=== PATIENT | male | born 1945 | race Caucasian/White ===

== ENCOUNTER 2016-12-29 10:28 | Inpatient (IN) | payer MEDICARE, OTHER ==
[~2016-12-29] VITALS: Ht 172.7 cm; Wt 78.5 kg
[~2016-12-29 10:28] MED LIST: ASPIRIN 81M81 MG/TA2 PO; AVODART 0.5MG0.5 MG PO; CARDURA4 MG PO; FLAGYL 250250 MG/TAB PO; HCTZ 25MG TAB25 MG PO; NORCO 325 MG-51 TAB PO; REVLIMID10 MG PO; [UNRECOGNIZED DRUG - REMARK]
[2016-12-29 11:24] LABS: HEMATOCRIT 37.8 % (42.0-52.0); HEMOGLOBIN 13.8 g/dl (13.5-18.0); MEAN CELL VOLUME 94 fl (80.0-100.0); MEAN CORPUSCULAR HEMOGLOBIN 34 pg (27.0-31.0); MEAN CORPUSCULAR HGB CONC 37 g/dl (33.0-37.0); MEAN PLATELET VOLUME 9.1 fl (7.4-10.4); PLATELET COUNT 79 K/mm3 (130-400); RED BLOOD COUNT 4.04 M/mm3 (4.20-5.60); REDCELL DISTRIBUTION WIDTH-CV 12.2 % (11.5-14.5)
[2016-12-29 11:26] LABS: WHITE BLOOD COUNT 1.1 K/mm3 (4.8-10.8)
[2016-12-29 11:29] LABS: ADJUSTED CALCIUM 8.8 mg/dL (8.4-10.2); ALBUMIN 3.9 gm/dL (3.5-5.0); BILIRUBIN,TOTAL 0.7 mg/dL (0.0-1.0); CALCIUM 8.7 mg/dL (8.4-10.2); CREATININE, serum 1.37 mg/dL (0.66-1.25); TOTAL PROTEIN 6.6 gm/dL (6.4-8.2)
[2016-12-29 11:31] LABS: POTASSIUM 2.9 mmol/L (3.4-5.0)
[2016-12-29 11:47] LABS: PH 5 (5-8); SQUAMOUS EPITHELIAL None Seen /hpf; URINE APPEARANCE Clear; URINE BACTERIA None Seen /hpf; URINE BILIRUBIN Negative (NEGATIVE); URINE BLOOD 1+ (NEGATIVE); URINE COLOR Straw; URINE GLUCOSE Negative (NEGATIVE); URINE KETONE Trace (NEGATIVE); URINE RBC None Seen /hpf; URINE UROBILINOGEN Negative (NEGATIVE); URINE WBC 0-2 /hpf
[2016-12-29 11:49] LABS: ADD PATHOLOGY DIFF REVIEW NO
[2016-12-29 12:07] LABS: BAND 20 % (0-10); BASOPHIL 1 % (0-2); NEUTROPHILS 33 % (42.0-75.2); TOTAL CELLS COUNTED 100
[2016-12-29 12:08] LABS: PLATELET ESTIMATE DECREASED (NORMAL)
[2016-12-29] MEDS ORDERED: PERIDEX (CHLOR480 ML MM (12:39)
[2016-12-29] MEDS ORDERED: HCTZ12.5TAB PO (12:40)
[2016-12-29] MEDS ORDERED: DOXYCYCLINE 10100 MG PO (12:41)
[2016-12-29] MEDS ORDERED: TYLENOL PM EXTR1 TA1 PO (14:50)
[2016-12-29 16:04] VITALS: BP 132/81; PULSE 74; TEMP 99.9
[2016-12-29 16:05] LABS: INFLUENZA B NEGATIVE
[2016-12-29 20:35] VITALS: BP 134/80; PULSE 78; TEMP 98.2
[2016-12-29 23:12] VITALS: BP 120/68; PULSE 57; TEMP 98.1
[2016-12-30 04:50] VITALS: BP 135/77; PULSE 62; TEMP 98.8
[2016-12-30 08:03] VITALS: BP 128/75; PULSE 76; TEMP 99.2
[2016-12-30 08:07] LABS: CREATININE, serum 1.22 mg/dL (0.66-1.25); POTASSIUM 3.4 mmol/L (3.4-5.0)
[2016-12-30 08:21] LABS: HEMOGLOBIN 12.7 g/dl (13.5-18.0); MEAN CELL VOLUME 98 fl (80.0-100.0); MEAN CORPUSCULAR HEMOGLOBIN 35 pg (27.0-31.0); MEAN CORPUSCULAR HGB CONC 36 g/dl (33.0-37.0); MEAN PLATELET VOLUME 9.4 fl (7.4-10.4); PLATELET COUNT 76 K/mm3 (130-400); RED BLOOD COUNT 3.67 M/mm3 (4.20-5.60); REDCELL DISTRIBUTION WIDTH-CV 12.6 % (11.5-14.5)
[2016-12-30 08:43] LABS: HEMATOCRIT 35.8 % (42.0-52.0); WHITE BLOOD COUNT 1.4 K/mm3 (4.8-10.8)
[2016-12-30 08:44] LABS: ADD PATHOLOGY DIFF REVIEW NO
[2016-12-30 10:58] VITALS: BP 124/44; PULSE 81; TEMP 99.6
[2016-12-30 15:17] VITALS: BP 116/69; PULSE 77; TEMP 99.3
[2016-12-30 16:10] LABS: BAND 18 % (0-10); NEUTROPHILS 24 % (42.0-75.2); PLATELET ESTIMATE DECREASED (NORMAL); TOTAL CELLS COUNTED 100
[2016-12-30 20:08] VITALS: BP 124/71; PULSE 78; TEMP 99.2
[2016-12-30 23:49] VITALS: BP 118/77; PULSE 65; TEMP 98.3
[2016-12-31 03:37] VITALS: BP 117/81; PULSE 68; TEMP 97.8
[2016-12-31 08:36] VITALS: BP 130/81; PULSE 75; TEMP 98.4
[2016-12-31 09:59] LABS: HEMOGLOBIN 12.3 g/dl (13.5-18.0); MEAN CELL VOLUME 96 fl (80.0-100.0); MEAN CORPUSCULAR HEMOGLOBIN 34 pg (27.0-31.0); MEAN CORPUSCULAR HGB CONC 35 g/dl (33.0-37.0); MEAN PLATELET VOLUME 9.9 fl (7.4-10.4); RED BLOOD COUNT 3.64 M/mm3 (4.20-5.60); REDCELL DISTRIBUTION WIDTH-CV 12.8 % (11.5-14.5); WHITE BLOOD COUNT 4.3 K/mm3 (4.8-10.8)
[2016-12-31 10:40] LABS: HEMATOCRIT 35.1 % (42.0-52.0); PLATELET COUNT 58 K/mm3 (130-400)
[2016-12-31 10:41] LABS: ADD PATHOLOGY DIFF REVIEW NO
[2016-12-31 12:19] VITALS: BP 127/81; PULSE 78; TEMP 98.4
[2016-12-31 12:48] LABS: BAND 33 % (0-10); METAMYELOCYTE 1 % (0-0); NEUTROPHILS 49 % (42.0-75.2); PLATELET ESTIMATE DECREASED (NORMAL); TOTAL CELLS COUNTED 100
[2016-12-31 16:02] VITALS: BP 127/70; PULSE 85; TEMP 97.8
[2016-12-31 21:24] VITALS: BP 139/84; PULSE 77; TEMP 98.9
[2017-01-01 00:22] VITALS: BP 135/87; PULSE 61; TEMP 97.8
[2017-01-01 03:24] VITALS: BP 138/89; PULSE 65; TEMP 97.8
[2017-01-01 08:37] VITALS: BP 145/88; PULSE 73; TEMP 97.1
[2017-01-01 09:38] LABS: HEMOGLOBIN 12.3 g/dl (13.5-18.0); MEAN CELL VOLUME 98 fl (80.0-100.0); MEAN CORPUSCULAR HEMOGLOBIN 34 pg (27.0-31.0); MEAN CORPUSCULAR HGB CONC 35 g/dl (33.0-37.0); MEAN PLATELET VOLUME 9.5 fl (7.4-10.4); RED BLOOD COUNT 3.66 M/mm3 (4.20-5.60); REDCELL DISTRIBUTION WIDTH-CV 12.9 % (11.5-14.5); WHITE BLOOD COUNT 3.6 K/mm3 (4.8-10.8)
[2017-01-01 09:39] LABS: HEMATOCRIT 35.7 % (42.0-52.0); PLATELET COUNT 54 K/mm3 (130-400)
[2017-01-01 09:40] LABS: ADD PATHOLOGY DIFF REVIEW NO
[2017-01-01 10:49] LABS: BAND 20 % (0-10); NEUTROPHILS 56 % (42.0-75.2); TOTAL CELLS COUNTED 100
[2017-01-01] MEDS ORDERED: LEVAQUIN 750MG750 M1 PO (11:53)
[2017-01-01 11:55] VITALS: BP 120/78; PULSE 70; TEMP 97.6
[2017-01-01] MEDS ORDERED: TUSS PO (11:55)
== END 2017-01-01 12:40 | disposition home or self-care (01) | DRG 809 ==
LOC: COL.ER 10:28 → MEDICAL 13:32
PROVIDERS: Emergency Medicine; Internal Medicine
DX: D70.9 Neutropenia, unspecified (principal); C90.00 Multiple myeloma not having achieved remission; N17.9 Acute kidney failure, unspecified; R50.81 Fever presenting with conditions classified elsewhere; D69.6 Thrombocytopenia, unspecified; I10 Essential (primary) hypertension; N40.0 Benign prostatic hyperplasia without lower urinary tract symptoms; K52.9 Noninfective gastroenteritis and colitis, unspecified
CPT/HCPCS: 99222-AI; 99232-AI; 99239; J0692; J0696; J1447; J7030

== ENCOUNTER → 2017-04-06 | Outpatient (CLI) | payer MEDICARE, OTHER ==
[~2017-04-06] MED LIST changes: +DOXYCYCLINE 10100 MG PO; +HCTZ12.5TAB PO; +LEVAQUIN 750MG750 M1 PO; +PERIDEX (CHLOR480 ML MM; +TUSS PO; +TYLENOL PM EXTR1 TA1 PO
== END ==
LOC: COL.RAD 10:21
DX: M48.06 Spinal stenosis, lumbar region (principal); M25.78 Osteophyte, vertebrae

== ENCOUNTER 2018-08-08 21:25 | Inpatient (IN) | payer MEDICARE, OTHER ==
[~2018-08-08] VITALS: Ht 170.2 cm; Wt 80.0 kg
[~2018-08-08 21:25] MED LIST changes: -MELATONIN5 M1 PO; -NEURONTIN300 MG/CAP PO; -PRILOSEC 20MG20 MG PO; -REVLIMID5 MG PO
[2018-08-08] MEDS ORDERED: REVLIMID5 MG PO (21:52)
[2018-08-08] MEDS ORDERED: MELATONIN5 M1 PO (21:54)
[2018-08-08] MEDS ORDERED: PRILOSEC 20MG20 MG PO (21:54)
[2018-08-08] MEDS ORDERED: NEURONTIN300 MG/CAP PO (21:54)
[2018-08-08 21:57] LABS: BASO % 0.6 % (0.0-2.0); EOS # 0.1 (0.0-0.7); EOS % 0.9 % (0-4.0); GRAN # 3.3 (1.4-6.5); GRAN % 62.7 % (42.2-75.2); HEMOGLOBIN 14.3 g/dl (13.5-18.0); LYMPH # 0.9 (1.2-3.4); LYMPH % 16.7 % (20.0-51.0); MEAN CELL VOLUME 95 fl (80.0-100.0); MEAN CORPUSCULAR HEMOGLOBIN 35 pg (27.0-31.0); MEAN CORPUSCULAR HGB CONC 37 g/dl (33.0-37.0); MEAN PLATELET VOLUME 9.1 fl (7.4-10.4); MONO % 18.2 % (1.7-9.3); PLATELET COUNT 108 K/mm3 (130-400); RED BLOOD COUNT 4.09 M/mm3 (4.20-5.60); REDCELL DISTRIBUTION WIDTH-CV 13.2 % (11.5-14.5)
[2018-08-08 22:09] LABS: ALBUMIN 3.8 gm/dL (3.5-5.0); BILIRUBIN,TOTAL 2.5 mg/dL (0.0-1.0); C-REACTIVE PROTEIN 6.2 mg/dL (0.0-0.9); CALCIUM 8.6 mg/dL (8.4-10.2); CREATININE, serum 1.13 mg/dL (0.66-1.25); TOTAL PROTEIN 6.7 gm/dL (6.4-8.2)
[2018-08-08 22:11] LABS: POTASSIUM 2.6 mmol/L (3.4-5.0)
[2018-08-08 22:59] LABS: COLLECTION METHOD CLEAN CATCH
[2018-08-08 23:05] LABS: PH 6 (5-8); SQUAMOUS EPITHELIAL None Seen /hpf; URINE APPEARANCE Clear; URINE BACTERIA None Seen /hpf; URINE BILIRUBIN Negative (NEGATIVE); URINE BLOOD 1+ (NEGATIVE); URINE COLOR Yellow; URINE GLUCOSE Negative (NEGATIVE); URINE KETONE Negative (NEGATIVE); URINE LEUKOCYTE ESTERASE Negative (NEGATIVE); URINE NITRATE Negative (NEGATIVE); URINE PROTEIN(semi-quant) Negative (NEGATIVE); URINE RBC None Seen /hpf; URINE UROBILINOGEN Negative (NEGATIVE)
[2018-08-09] MEDS ORDERED: ASPIRIN 81M81 MG/TA2 PO (00:41)
[2018-08-09 02:00] VITALS: BP 145/72; PULSE 90; TEMP 98.8
[2018-08-09 03:58] VITALS: BP 129/960; PULSE 86; TEMP 101.6
[2018-08-09 05:56] LABS: ALBUMIN 3.3 gm/dL (3.5-5.0); BILIRUBIN,TOTAL 3.2 mg/dL (0.0-1.0); CALCIUM 8.1 mg/dL (8.4-10.2); CREATININE, serum 1.16 mg/dL (0.66-1.25); POTASSIUM 3.1 mmol/L (3.4-5.0); TOTAL PROTEIN 5.9 gm/dL (6.4-8.2)
[2018-08-09 06:00] LABS: BASO % 0.2 % (0.0-2.0); EOS % 0.4 % (0-4.0); GRAN # 3.2 (1.4-6.5); GRAN % 67.1 % (42.2-75.2); HEMOGLOBIN 13.4 g/dl (13.5-18.0); LYMPH # 0.7 (1.2-3.4); LYMPH % 13.8 % (20.0-51.0); MEAN CELL VOLUME 99 fl (80.0-100.0); MEAN CORPUSCULAR HEMOGLOBIN 35 pg (27.0-31.0); MEAN CORPUSCULAR HGB CONC 35 g/dl (33.0-37.0); MEAN PLATELET VOLUME 10.3 fl (7.4-10.4); MONO # 0.8 (0.1-0.6); MONO % 17.5 % (1.7-9.3); PLATELET COUNT 110 K/mm3 (130-400); RED BLOOD COUNT 3.83 M/mm3 (4.20-5.60); REDCELL DISTRIBUTION WIDTH-CV 13.4 % (11.5-14.5)
[2018-08-09 07:59] VITALS: BP 105/56; PULSE 64; TEMP 97.7
[2018-08-09 12:11] VITALS: BP 116/72; PULSE 74; TEMP 97.4
[2018-08-09 16:26] VITALS: BP 124/68; PULSE 79; TEMP 99.4
[2018-08-09 20:35] VITALS: BP 116/66; PULSE 66; TEMP 97.6
[2018-08-10] VITALS (10 sets, daily range): BP systolic 102–122; BP diastolic 59–86; PULSE 57–73; TEMP 97.5–98
[2018-08-10 06:12] LABS: HEMATOCRIT 39.7 % (42.0-52.0); HEMOGLOBIN 13.6 g/dl (13.5-18.0); MEAN CELL VOLUME 102 fl (80.0-100.0); MEAN CORPUSCULAR HEMOGLOBIN 35 pg (27.0-31.0); MEAN CORPUSCULAR HGB CONC 34 g/dl (33.0-37.0); MEAN PLATELET VOLUME 9.7 fl (7.4-10.4); PLATELET COUNT 121 K/mm3 (130-400); RED BLOOD COUNT 3.91 M/mm3 (4.20-5.60); REDCELL DISTRIBUTION WIDTH-CV 13.5 % (11.5-14.5)
[2018-08-10 06:18] LABS: ALBUMIN 3.4 gm/dL (3.5-5.0); BILIRUBIN,TOTAL 1.9 mg/dL (0.0-1.0); CALCIUM 8.1 mg/dL (8.4-10.2); CREATININE, serum 1.08 mg/dL (0.66-1.25); POTASSIUM 3.4 mmol/L (3.4-5.0); TOTAL PROTEIN 6.3 gm/dL (6.4-8.2)
== END 2018-08-10 15:05 | disposition home or self-care (01) | DRG 418 ==
LOC: COL.ER 21:25 → SURG 22:27
PROVIDERS: Emergency Medicine; Surgery
PROC: BF121ZZ Fluoroscopy of Gallbladder using Low Osmolar Contrast (ICD-10-PCS; 2018-08-10)
PROC: 0FT44ZZ Resection of Gallbladder, Percutaneous Endoscopic Approach (ICD-10-PCS; principal; 2018-08-10 08:00)
DX: K81.2 Acute cholecystitis with chronic cholecystitis (principal); C90.01 Multiple myeloma in remission; I10 Essential (primary) hypertension; K21.9 Gastro-esophageal reflux disease without esophagitis
CPT/HCPCS: J0696; J1885; J2250; J2405; J2543; J2704; J3010; J3480; J7030; J7120; Q9967

== ENCOUNTER → 2018-08-08 | Outpatient (CLI) | payer MEDICARE, OTHER ==
[~2018-08-08] MED LIST changes: +CARDURA 2MG2 MG PO; -CARDURA4 MG PO; -HCTZ12.5TAB PO; +MELATONIN5 M1 PO; +NEURONTIN300 MG/CAP PO; +PRILOSEC 20MG20 MG PO; +REVLIMID5 MG PO
== END ==
LOC: COL.RAD 08:30
DX: K57.90 Diverticulosis of intestine, part unspecified, without perforation or abscess without bleeding (principal); Z85.79 Personal history of other malignant neoplasms of lymphoid, hematopoietic and related tissues
CPT/HCPCS: Q9967

== ENCOUNTER 2018-09-02 18:00 | Emergency (ER) | payer MEDICARE, OTHER ==
[~2018-09-02] VITALS: Ht 170.2 cm; Wt 79.1 kg
[~2018-09-02 18:00] MED LIST changes: +MELATONIN5 M1 PO; +NEURONTIN300 MG/CAP PO; +PRILOSEC 20MG20 MG PO; +REVLIMID5 MG PO
[2018-09-02 18:05] VITALS: TEMP 100
[2018-09-02 18:48] LABS: EOS # 0.1 (0.0-0.7); EOS % 4.1 % (0-4.0); GRAN # 1.8 (1.4-6.5); GRAN % 73.7 % (42.2-75.2); HEMATOCRIT 40.3 % (42.0-52.0); HEMOGLOBIN 14.1 g/dl (13.5-18.0); LYMPH # 0.4 (1.2-3.4); LYMPH % 14.8 % (20.0-51.0); MEAN CELL VOLUME 98 fl (80.0-100.0); MEAN CORPUSCULAR HEMOGLOBIN 34 pg (27.0-31.0); MEAN CORPUSCULAR HGB CONC 35 g/dl (33.0-37.0); MEAN PLATELET VOLUME 9.1 fl (7.4-10.4); MONO # 0.2 (0.1-0.6); MONO % 6.6 % (1.7-9.3); PLATELET COUNT 84 K/mm3 (130-400); RED BLOOD COUNT 4.12 M/mm3 (4.20-5.60); REDCELL DISTRIBUTION WIDTH-CV 13.5 % (11.5-14.5)
[2018-09-02 18:55] LABS: ALBUMIN 3.7 gm/dL (3.5-5.0); BILIRUBIN,TOTAL 1.4 mg/dL (0.0-1.0); C-REACTIVE PROTEIN 0.8 mg/dL (0.0-0.9); CALCIUM 8.3 mg/dL (8.4-10.2); CREATININE, serum 1.18 mg/dL (0.66-1.25); POTASSIUM 3.2 mmol/L (3.4-5.0); TOTAL PROTEIN 6.4 gm/dL (6.4-8.2)
[2018-09-02] MEDS ORDERED: MULTIPLE VITAMI1 CAP PO (19:05)
[2018-09-02] MEDS ORDERED: MAGNESIUM200 MG PO (19:05)
[2018-09-02] MEDS ORDERED: CALCIUM CARBON650 M2 PO (19:06)
[2018-09-02 19:23] VITALS: BP 106/61; PULSE 89
== END 2018-09-02 19:30 | disposition home or self-care (01) ==
LOC: COL.ER 18:00
PROVIDERS: Emergency Medicine
DX: T88.1XXA Other complications following immunization, not elsewhere classified, initial encounter (principal); T50.B95A Adverse effect of other viral vaccines, initial encounter; R11.2 Nausea with vomiting, unspecified; I10 Essential (primary) hypertension; Y84.8 Other medical procedures as the cause of abnormal reaction of the patient, or of later complication, without mention of misadventure at the time of the procedure; Z90.49 Acquired absence of other specified parts of digestive tract; Z87.891 Personal history of nicotine dependence; Z98.890 Other specified postprocedural states; Z79.82 Long term (current) use of aspirin
CPT/HCPCS: J2405; J7030

== ENCOUNTER 2020-01-12 20:45 | Emergency (ER) | payer MEDICARE, OTHER ==
[~2020-01-12] VITALS: Ht 170.2 cm; Wt 80.5 kg
[~2020-01-12 20:45] MED LIST changes: +CALCIUM CARBON650 M2 PO; +MAGNESIUM200 MG PO; +MULTIPLE VITAMI1 CAP PO
[2020-01-12] MEDS ORDERED: AVODART 0.5MG0.5 MG PO (21:01)
[2020-01-12] MEDS ORDERED: FOSAMAX 70MG TA70 MG PO (21:04)
[2020-01-12 21:29] LABS: BASO % 0.5 % (0.0-2.0); EOS # 0.1 (0.0-0.7); EOS % 1.1 % (0-4.0); GRAN # 3.4 (1.4-6.5); HEMATOCRIT 45.3 % (42.0-52.0); LYMPH # 0.2 (1.2-3.4); LYMPH % 5.2 % (20.0-51.0); MEAN CELL VOLUME 96 fl (80.0-100.0); MEAN CORPUSCULAR HEMOGLOBIN 34 pg (27.0-31.0); MEAN CORPUSCULAR HGB CONC 35 g/dl (33.0-37.0); MEAN PLATELET VOLUME 10.2 fl (7.4-10.4); MONO # 0.7 (0.1-0.6); PLATELET COUNT 101 K/mm3 (130-400); REDCELL DISTRIBUTION WIDTH-CV 13.3 % (11.5-14.5)
[2020-01-12 21:41] LABS: ALBUMIN 4.1 gm/dL (3.5-5.0); BILIRUBIN,TOTAL 1.3 mg/dL (0.0-1.0); CREATININE, serum 1.09 (0.66-1.25); POTASSIUM 3.2 mmol/L (3.4-5.0); TOTAL PROTEIN 6.6 gm/dL (6.4-8.2)
[2020-01-12] MEDS ORDERED: PHENERGAN 25 TA25 MG PO (22:50)
[2020-01-12 23:07] VITALS: BP 146/86; PULSE 86; TEMP 98.6
== END 2020-01-12 23:20 | disposition home or self-care (01) ==
LOC: COL.ER 20:45
PROVIDERS: Emergency Medicine
DX: R55 Syncope and collapse (principal); I10 Essential (primary) hypertension; Z79.82 Long term (current) use of aspirin; Z85.79 Personal history of other malignant neoplasms of lymphoid, hematopoietic and related tissues
CPT/HCPCS: J2405; J7030

== ENCOUNTER → 2020-04-10 | Outpatient (CLI) | payer MEDICARE, OTHER ==
[~2020-04-10] MED LIST changes: +FOSAMAX 70MG TA70 MG PO; +PHENERGAN 25 TA25 MG PO; +QUESTRAN4 GM/9 GM PO
== END ==
LOC: COL.RAD 11:05
DX: C90.01 Multiple myeloma in remission (principal); Z94.81 Bone marrow transplant status

== ENCOUNTER 2020-04-14 06:56 | Outpatient (CLI) | payer MEDICARE, OTHER ==
[~2020-04-14] VITALS: Ht 170.3 cm; Wt 81.7 kg
[~2020-04-14 06:56] MED LIST changes: -QUESTRAN4 GM/9 GM PO
[2020-04-14] MEDS ORDERED: NEURONTIN300 MG/CAP PO (07:51)
[2020-04-14 07:54] VITALS: BP 141/90; PULSE 69; TEMP 96.9
[2020-04-14] MEDS ORDERED: QUESTRAN4 GM/9 GM PO (08:48)
[2020-04-14] MEDS ORDERED: REVLIMID5 MG PO (08:48)
--- NOTE | 2020-04-14 09:40 | NUR ---
Report received from Alessandra,PACU.Will await further orders.
[2020-04-14 09:45] VITALS: BP 142/89; PULSE 62
--- NOTE | 2020-04-14 09:45 | NUR ---
Pt returned from procedure,observed alert and orientated x 3,respirations even and unlabored.report from Anat Aparicio.
[2020-04-14 09:50] VITALS: BP 139/92; PULSE 64
[2020-04-14 10:05] VITALS: BP 142/92; PULSE 66
[2020-04-14 10:20] VITALS: BP 145/97; PULSE 67
[2020-04-14 10:25] VITALS: BP 117/74; PULSE 65
[2020-04-14 10:38] LABS: BASO # 0.1 (0.0-0.2); BASO % 1.5 % (0.0-2.0); EOS # 0.2 (0.0-0.7); EOS % 7.2 % (0-4.0); GRAN # 1.3 (1.4-6.5); GRAN % 39.2 % (42.2-75.2); HEMATOCRIT 45.2 % (42.0-52.0); HEMOGLOBIN 15.8 g/dl (13.5-18.0); LYMPH # 1.1 (1.2-3.4); LYMPH % 32.9 % (20.0-51.0); MEAN CELL VOLUME 98 fl (80.0-100.0); MEAN CORPUSCULAR HEMOGLOBIN 34 pg (27.0-31.0); MEAN CORPUSCULAR HGB CONC 35 g/dl (33.0-37.0); MEAN PLATELET VOLUME 10.1 fl (7.4-10.4); MONO # 0.6 (0.1-0.6); MONO % 18.9 % (1.7-9.3); PLATELET COUNT 115 K/mm3 (130-400); RED BLOOD COUNT 4.63 M/mm3 (4.20-5.60); REDCELL DISTRIBUTION WIDTH-CV 13.2 % (11.5-14.5)
--- NOTE | 2020-04-14 10:55 | NUR ---
dISCHARGE INSTRUCTIONS GIVEN TO PT.PT VERBALIZES UNDERSTANDING.int REMOVED,CATHETER TIP INTACT.pT ESCORTED OUT VIA WHEELCHAIR BY THIS NURSE.
== END 2020-04-14 11:13 | disposition home or self-care (01) ==
LOC: EUO 06:56
PROVIDERS: Pathology Anatomic Pathology & Clinical Pathology
DX: C90.00 Multiple myeloma not having achieved remission (principal)
CPT/HCPCS: J2704; J7120

== ENCOUNTER → 2021-04-15 | Outpatient (CLI) | payer MEDICARE, OTHER ==
[~2021-04-15] MED LIST changes: +QUESTRAN4 GM/9 GM PO
== END ==
LOC: COL.RAD 10:43
DX: C90.01 Multiple myeloma in remission (principal); Z87.81 Personal history of (healed) traumatic fracture

== ENCOUNTER 2022-01-15 18:11 | Inpatient (IN) | payer MEDICARE, OTHER ==
[~2022-01-15] VITALS: Ht 170.2 cm; Wt 76.5 kg
[2022-01-15 18:49] LABS: BASO % 0.4 % (0.0-2.0); EOS % 1.3 % (0.0-4.0); GRAN # 1.6 K/mm3 (1.4-6.5); GRAN % 67.9 % (42.2-75.2); HEMATOCRIT 40.6 % (42.0-52.0); HEMOGLOBIN 14.8 g/dl (13.5-18.0); LYMPH # 0.3 K/mm3 (1.2-3.4); LYMPH % 13.8 % (20.0-51.0); MEAN CELL VOLUME 90 fl (80.0-100.0); MEAN CORPUSCULAR HEMOGLOBIN 33 pg (27-31); MEAN CORPUSCULAR HGB CONC 37 g/dl (33.0-37.0); MEAN PLATELET VOLUME 9.7 fl (7.4-10.4); MONO # 0.4 K/mm3 (0.1-0.6); MONO % 15.8 % (1.7-9.3); PLATELET COUNT 76 K/mm3 (130-400); RED BLOOD COUNT 4.51 M/mm3 (4.20-5.60); REDCELL DISTRIBUTION WIDTH-CV 12.9 % (11.5-14.5)
[2022-01-15 19:04] LABS: ALBUMIN 3.5 gm/dL (3.4-4.8); BILIRUBIN,TOTAL 1.4 mg/dL (0.2-1.2); C-REACTIVE PROTEIN 14.45 mg/dL (0.00-0.50); CALCIUM 8.4 mg/dL (8.4-10.2); CREATININE, serum 1.4 mg/dL (0.72-1.25); POTASSIUM 2.6 mmol/L (3.5-4.5); TOTAL PROTEIN 6.4 gm/dL (6.2-8.1)
[2022-01-15 19:09] LABS: TROPONIN-I 0.023 ng/mL (0.00-0.033)
[2022-01-15 21:01] LABS: MAGNESIUM 1.2 mg/dL (1.6-2.6)
[2022-01-15] MEDS ORDERED: TESSALON P100 MG/CAP PO (21:18)
[2022-01-15] MEDS ORDERED: CALCIUM 600 MG1 EAC2 PO (21:22)
[2022-01-15 22:07] LABS: INR 1.2 (0.8-3.0); PROTHROMBIN TIME 13.5 SECONDS (9.7-12.8)
[2022-01-15 22:15] LABS: COLLECTION METHOD CLEAN CATCH
[2022-01-15 22:34] LABS: MUCOUS Present (NOT PRESENT); PH 5 (5-8); SQUAMOUS EPITHELIAL 0-2 /hpf (0-10); URINE APPEARANCE Hazy (CLEAR/HAZY); URINE BACTERIA None Seen /hpf (NONE SEEN); URINE BILIRUBIN Negative (NEGATIVE); URINE BLOOD 2+ (NEGATIVE); URINE COLOR Yellow (YELLOW); URINE GLUCOSE Negative (NEGATIVE); URINE KETONE 1+ (NEGATIVE); URINE LEUKOCYTE ESTERASE Negative (NEGATIVE); URINE NITRATE Negative (NEGATIVE); URINE PROTEIN(semi-quant) 1+ (NEGATIVE); URINE RBC 0-2 /hpf (0-2); URINE UROBILINOGEN Negative (NEGATIVE)
[2022-01-15 23:31] VITALS: BP 159/77; PULSE 96; TEMP 101.1
[2022-01-16 04:28] VITALS: BP 152/73; PULSE 74; TEMP 97.9
--- NOTE | 2022-01-16 04:54 | NUR ---
76 yo male with a past medical history significant for multiple myeloma with a history of bone marrow transplant and receiving Revlimid with chronic leukopenia and thrombocytopenia is now admitted for further care and managment of sepsis likely secondary to multilobar pneumonia. ht 67 inches wt 80.6 kg SCr 1.4 with estimated CrCl ~40 ml/min half life 21.1 hours Plan: Will give an initial loading dose of vancomycin 1500 mg x1 (18.6 mg/kg); followed by a maintenance regimen of vancomycin 1250 mg q24h to target a goal trough of 15-20 mcg/ml. Will follow patient's renal function, micro data, and vancomycin levels as indicated to assess for any necessary changes to regimen. Thank you for this dosing consult.
[2022-01-16 05:06] LABS: CLOSTRIDIUM DIFF A/B NEG; CLOSTRIDIUM DIFF A/B INTERP NonToxigenic C.diff
[2022-01-16 07:22] VITALS: BP 145/86; PULSE 73; TEMP 97.7
[2022-01-16 07:31] LABS: MAGNESIUM 1.8 mg/dL (1.6-2.6); PHOSPHOROUS 2.1 mg/dL (2.3-4.7)
--- NOTE | 2022-01-16 07:36 | NUR ---
PT admitted to room 357 from ED, alert and oriented ambulating to restroom ad selam. oriented to room, plan of care and medical floor. saline lock in left forearm started in ED, 2nd site placed in RFA per this RN d/t numerous IVF orders, 1st bag of potassium given in ED, confirmed with GIACOMO Villa to give 8 bags total, additional 6 bags given since admission, 1 remaining. IVF NS infusing @100 cc/hr. updates given this am to pt and , per phone. pt placed in contact and droplet precautions per lab results.
[2022-01-16 08:11] LABS: HEMATOCRIT 41.5 % (42.0-52.0); HEMOGLOBIN 14.4 g/dl (13.5-18.0); MEAN CELL VOLUME 94 fl (80.0-100.0); MEAN CORPUSCULAR HEMOGLOBIN 33 pg (27-31); MEAN CORPUSCULAR HGB CONC 35 g/dl (33.0-37.0); MEAN PLATELET VOLUME 10.5 fl (7.4-10.4); PLATELET COUNT 77 K/mm3 (130-400); RED BLOOD COUNT 4.41 M/mm3 (4.20-5.60); REDCELL DISTRIBUTION WIDTH-CV 13.2 % (11.5-14.5)
[2022-01-16 08:21] LABS: CALCIUM 7.8 mg/dL (8.4-10.2); CREATININE, serum 1.28 mg/dL (0.72-1.25); POTASSIUM 3.1 mmol/L (3.5-4.5)
--- NOTE | 2022-01-16 09:20 | NUR ---
Shift assessment complete. Pt resting in bed, at bedside. A&Ox4. Heart RRR. Lungs CTA. Denies pain, N/V, dizziness, SOA or any other concerns. IV fluids running. Pt denies further needs at this time.
[2022-01-16 09:53] LABS: LYMPHOCYTE 14 % (20.0-51.0); NEUTROPHILS 84 % (42.0-75.2)
[2022-01-16 09:54] LABS: PLATELET ESTIMATE DECREASED (NORMAL)
[2022-01-16] MEDS ORDERED: MELATONIN5 M1 SL (10:23)
[2022-01-16] MEDS ORDERED: QUERCETIN PO (10:24)
[2022-01-16 11:39] VITALS: BP 152/84; PULSE 86; TEMP 97.6
--- NOTE | 2022-01-16 13:39 | NUR ---
SW met with pt to complete intake. Pt reports he lives at home with his , gerard [phone] and is independent on all ADLS and DME. The pt reports still driving. The pt report PCP Dr. Kincaid [facility] No other needs at this time. DC: Home with .
[2022-01-16 16:09] VITALS: BP 147/87; PULSE 90; TEMP 98
[2022-01-16 20:34] VITALS: BP 155/85; PULSE 96; TEMP 98.1
[2022-01-16 23:36] VITALS: BP 144/86; PULSE 89; TEMP 98.4
--- NOTE | 2022-01-17 01:41 | NUR ---
PATIENT DOING WELL TONIGHT. ALERT AND ORIENTED. PRN TYLENOL GIVEN FOR HEADACHE ALONG WITH SCHEDULED MEDS. TELE REPORTING SR. IV R AND L FA PATENT AND FLUSH EASILY. NO TEMPERATURE TONIGHT. DENIES NAUSEA.
[2022-01-17 03:31] VITALS: BP 157/99; PULSE 73; TEMP 98
[2022-01-17 06:53] LABS: BASO % 0.3 % (0.0-2.0); GRAN # 2.6 K/mm3 (1.4-6.5); GRAN % 75.3 % (42.2-75.2); HEMATOCRIT 37.1 % (42.0-52.0); HEMOGLOBIN 13.3 g/dl (13.5-18.0); LYMPH # 0.4 K/mm3 (1.2-3.4); LYMPH % 10.6 % (20.0-51.0); MEAN CELL VOLUME 92 fl (80.0-100.0); MEAN CORPUSCULAR HEMOGLOBIN 33 pg (27-31); MEAN CORPUSCULAR HGB CONC 36 g/dl (33.0-37.0); MEAN PLATELET VOLUME 10.1 fl (7.4-10.4); MONO # 0.5 K/mm3 (0.1-0.6); MONO % 13.2 % (1.7-9.3); PLATELET COUNT 92 K/mm3 (130-400); RED BLOOD COUNT 4.03 M/mm3 (4.20-5.60); REDCELL DISTRIBUTION WIDTH-CV 13.2 % (11.5-14.5)
[2022-01-17 06:57] LABS: CALCIUM 7.4 mg/dL (8.4-10.2); CREATININE, serum 1.14 mg/dL (0.72-1.25); MAGNESIUM 1.6 mg/dL (1.6-2.6); POTASSIUM 3.3 mmol/L (3.5-4.5)
[2022-01-17 08:34] VITALS: BP 173/82; PULSE 92; TEMP 97.6
--- NOTE | 2022-01-17 10:52 | NUR ---
PT RESTING IN BED. MORNING MEDICATIONS GIVEN. SHIFT ASSESSMENT COMPLETED. DENIES ANY PAIN OR NEEDS AT THIS TIME. REPORTS FREQUENT, WATERY, GREEN STOOLS. WILL CONTINUE TO MONITOR.
[2022-01-17 11:22] VITALS: BP 194/94; PULSE 101; TEMP 98.3
[2022-01-17 16:39] VITALS: BP 180/86; PULSE 90; TEMP 98.7
[2022-01-17 19:51] VITALS: BP 165/85; PULSE 105; TEMP 99.1
[2022-01-17 23:49] VITALS: BP 143/72; PULSE 82; TEMP 98.7
[2022-01-18 03:08] VITALS: BP 145/72; PULSE 89; TEMP 98.7
[2022-01-18 06:41] LABS: BASO % 0.4 % (0.0-2.0); EOS % 0.4 % (0.0-4.0); GRAN # 2.1 K/mm3 (1.4-6.5); GRAN % 75.2 % (42.2-75.2); HEMOGLOBIN 13.9 g/dl (13.5-18.0); LYMPH # 0.3 K/mm3 (1.2-3.4); LYMPH % 11.8 % (20.0-51.0); MEAN CELL VOLUME 91 fl (80.0-100.0); MEAN CORPUSCULAR HEMOGLOBIN 32 pg (27-31); MEAN CORPUSCULAR HGB CONC 36 g/dl (33.0-37.0); MEAN PLATELET VOLUME 10.2 fl (7.4-10.4); MONO # 0.3 K/mm3 (0.1-0.6); MONO % 11.8 % (1.7-9.3); PLATELET COUNT 98 K/mm3 (130-400); RED BLOOD COUNT 4.29 M/mm3 (4.20-5.60); REDCELL DISTRIBUTION WIDTH-CV 13.2 % (11.5-14.5)
--- NOTE | 2022-01-18 06:46 | NUR ---
pt requested tylenol x2 tonight for RUVALCABA, IVF infusing per PIV in LFA, reports diarrhea has decreased some, tolerating regular diet, reported nausea x1 @1930 but refused zofran. no further nausea reported. robitussin given x1 for cough.
[2022-01-18 07:08] LABS: ALBUMIN 3.1 gm/dL (3.4-4.8); BILIRUBIN,TOTAL 1.2 mg/dL (0.2-1.2); CALCIUM 7.4 mg/dL (8.4-10.2); CREATININE, serum 1.12 mg/dL (0.72-1.25); MAGNESIUM 1.4 mg/dL (1.6-2.6); TOTAL PROTEIN 5.6 gm/dL (6.2-8.1)
[2022-01-18 08:15] VITALS: BP 151/75; PULSE 94; TEMP 98.6
--- NOTE | 2022-01-18 09:15 | NUR ---
Patient sitting up in bed upon entering the room. Denies any pain, and reports that he feels much better as compared to yesterday. Patient is A&Ox4 and independent in his room. is at the bedside... Patient is receiving multiple IV medications and only has 1 IV access. This RN is planning to start a 2nd peripheral line.
--- NOTE | 2022-01-18 09:53 | NUR ---
2nd IV started in the patient's right forearm.
[2022-01-18 11:10] VITALS: BP 157/86; PULSE 93; TEMP 97.9; TEMP 98.3
[2022-01-18 16:00] VITALS: BP 154/89; PULSE 92; TEMP 98.1
--- NOTE | 2022-01-18 16:47 | NUR ---
Another new IV was started on the patient right upper arm, d/t pain w/ the other IV previously started. Patient continues to deny any pain.
[2022-01-18 20:24] VITALS: BP 150/92; PULSE 98; TEMP 98.4
[2022-01-19 00:05] VITALS: BP 155/87; PULSE 81; TEMP 98.3
[2022-01-19 04:07] VITALS: BP 160/80; PULSE 90; TEMP 98.3
--- NOTE | 2022-01-19 06:17 | NUR ---
NO NEW ISSUES NOTED OR REPORTED BY PATIENT. PATIENT STATED HE IS LOOKING FORWARD TO GOING HOME TODAY.
[2022-01-19 06:44] LABS: BASO % 0.4 % (0.0-2.0); EOS % 0.8 % (0.0-4.0); GRAN # 1.6 K/mm3 (1.4-6.5); GRAN % 67.1 % (42.2-75.2); HEMATOCRIT 37.3 % (42.0-52.0); LYMPH # 0.4 K/mm3 (1.2-3.4); LYMPH % 17.1 % (20.0-51.0); MEAN CELL VOLUME 94 fl (80.0-100.0); MEAN CORPUSCULAR HEMOGLOBIN 33 pg (27-31); MEAN CORPUSCULAR HGB CONC 35 g/dl (33.0-37.0); MEAN PLATELET VOLUME 10.4 fl (7.4-10.4); MONO # 0.3 K/mm3 (0.1-0.6); MONO % 14.2 % (1.7-9.3); PLATELET COUNT 100 K/mm3 (130-400); RED BLOOD COUNT 3.97 M/mm3 (4.20-5.60); REDCELL DISTRIBUTION WIDTH-CV 13.2 % (11.5-14.5)
[2022-01-19 06:58] LABS: CALCIUM 7.4 mg/dL (8.4-10.2); MAGNESIUM 1.8 mg/dL (1.6-2.6); PHOSPHOROUS 1.9 mg/dL (2.3-4.7); POTASSIUM 3.3 mmol/L (3.5-4.5)
[2022-01-19] MEDS ORDERED: VANCOCIN H125 MG/CAP PO (07:58)
[2022-01-19 08:10] VITALS: BP 157/75; PULSE 86; TEMP 98
[2022-01-19] MEDS ORDERED: DOXYCYCLINE 10100 MG PO (08:53)
[2022-01-19] MEDS ORDERED: K-PHOS NEUTRAL250 M1 PO (09:04)
[2022-01-19] MEDS ORDERED: K-DUR20 MEQ PO (09:06)
[2022-01-19 11:50] VITALS: BP 157/84; PULSE 84; TEMP 98.2
--- NOTE | 2022-01-19 13:57 | NUR ---
Scheduled medications given. Shift assessment performed. VSS. Patient A&O. Patient deemed fit for discharge. IVs DC'd, catheters intact, no signs of phlebitis. Discharge education/instructions given. All questions answered. Patient denies any pain, discomofort, SOA, or further needs at this time. Patient escorted from building by via wheelchair by [facility]. transporting home.
== END 2022-01-19 13:59 | disposition home or self-care (01) | DRG 871 ==
LOC: COL.ER 18:11 → MEDICAL 20:32
PROVIDERS: Nurse Practitioner; Nurse Practitioner Family; Physician Assistant; ADMIT Internal Medicine
DX: A41.9 Sepsis, unspecified organism (principal); J18.9 Pneumonia, unspecified organism; C90.00 Multiple myeloma not having achieved remission; D84.9 Immunodeficiency, unspecified; E87.1 Hypo-osmolality and hyponatremia; N17.9 Acute kidney failure, unspecified; A04.72 Enterocolitis due to Clostridium difficile, not specified as recurrent; I10 Essential (primary) hypertension; N40.0 Benign prostatic hyperplasia without lower urinary tract symptoms; D69.6 Thrombocytopenia, unspecified; K21.9 Gastro-esophageal reflux disease without esophagitis; E87.8 Other disorders of electrolyte and fluid balance, not elsewhere classified; E87.6 Hypokalemia; E83.42 Hypomagnesemia; E83.39 Other disorders of phosphorus metabolism; E86.0 Dehydration; B97.81 Human metapneumovirus as the cause of diseases classified elsewhere; Z20.822 Contact with and (suspected) exposure to COVID-19; Z87.891 Personal history of nicotine dependence
CPT/HCPCS: 99222-AI; 99232-AI; 99233-AI; 99239; J2405; J2543; J2920; J2930; J3370; J3475; J3480; J7030; J7050; Q9967

== ENCOUNTER → 2022-01-26 | Outpatient (CLI) | payer MEDICARE, OTHER ==
[~2022-01-26] MED LIST changes: +CALCIUM 600 MG1 EAC2 PO; +K-DUR20 MEQ PO; +K-PHOS NEUTRAL250 M1 PO; +MELATONIN5 M1 SL; +QUERCETIN PO; +TESSALON P100 MG/CAP PO; +VANCOCIN H125 MG/CAP PO
[2022-01-26 12:07] LABS: ALBUMIN 3.5 gm/dL (3.4-4.8); BILIRUBIN,TOTAL 0.6 mg/dL (0.2-1.2); CALCIUM 9.5 mg/dL (8.4-10.2); CREATININE, serum 1.27 mg/dL (0.72-1.25); MAGNESIUM 1.5 mg/dL (1.6-2.6); POTASSIUM 3.8 mmol/L (3.5-4.5); TOTAL PROTEIN 6.3 gm/dL (6.2-8.1)
== END ==
LOC: COL.LAB 10:32
PROVIDERS: Physician Assistant
DX: E87.6 Hypokalemia (principal); E83.42 Hypomagnesemia